=== PATIENT | female | born 1965 | race Caucasian/White ===

== ENCOUNTER 2020-10-28 09:13 | Emergency (ER) | payer OTHER, MEDICAID ==
[~2020-10-28] VITALS: Ht 162.6 cm; Wt 53.1 kg
[2020-10-28 10:04] LABS: Basophils # (auto) 0.1 10 ^3/uL (0-0.2); Basophils % (auto) 0.7 % (0.0-2.0); Eosinophils # (auto) 0 10 ^3/uL (0-0.8); Eosinophils % (auto) 0.1 % (0.0-7.0); Hematocrit 40.8 % (36.0-46.0); Hemoglobin 14.1 g/dL (12.2-16.2); Lymphocytes # (auto) 1.1 10 ^3/uL (0.4-5.4); Lymphocytes % (auto) 7.1 % (10.0-50.0); Mean Corpuscular Hgb Conc. 34.6 g/dL (32.0-36.0); Mean Corpuscular Volume 86.6 fL (80.0-100.0); Monocytes % (auto) 6.1 % (0.0-12.0); Neutrophils # (auto) 13.8 10 ^3/uL (1.6-8.6); Red Blood Cells 4.72 10^6/uL (4.0-5.20); Red Cell Distribution Width 13.4 % (11.8-14.3)
[2020-10-28 10:12] LABS: INR 1.38 (0.9-1.15)
[2020-10-28 10:22] LABS: Albumin 2.6 g/dL (3.4-5.0); Calcium 6.9 mg/dL (8.5-10.1); Potassium 4.1 mmol/L (3.5-5.1)
[2020-10-28 10:27] LABS: BUN/Creatinine Ratio 23.3; Total Protein 8.2 g/dL (6.4-8.2)
[2020-10-28] MEDS ORDERED: SODIUM CHLORIDE 0.9% 500 ML IVB ONE (11:15)
[2020-10-28] MEDS ORDERED: SODIUM CHLORIDE 0.9% 1,000 ML IV ONE (11:15)
[2020-10-28] MEDS ORDERED: CALCIUM CHL 100MG/ML 500 MG in D5W 5% 100 ML IV ONE (13:45)
[2020-10-28] MEDS ORDERED: cefTRIAXone 1GM/50ML D5W 50 ML IV ONE (14:00)
[2020-10-28 14:07] LABS: Urine Bacteria MANY /hpf (None Seen); Urine Blood 3+ /uL (Negative); Urine Mucus FEW (None Seen); Urine Specific Gravity 1.016 (1.001-1.035); Urine WBC 387 /hpf (0 - 5)
[2020-10-28 15:49] LABS: Magnesium 2.5 mg/dL (1.6-2.6)
[2020-10-28 18:58] VITALS: BP 97/60
== END 2020-10-28 19:06 | disposition home or self-care (01) ==
LOC: EDBD 09:13 → ER 09:13
DX: N93.9 Abnormal uterine and vaginal bleeding, unspecified (principal); G30.9 Alzheimer's disease, unspecified; F02.80 Dementia in other diseases classified elsewhere, unspecified severity, without behavioral disturbance, psychotic disturbance, mood disturbance, and anxiety; R94.5 Abnormal results of liver function studies; N39.0 Urinary tract infection, site not specified; E46 Unspecified protein-calorie malnutrition; K56.41 Fecal impaction; E83.51 Hypocalcemia; Z20.822 Contact with and (suspected) exposure to COVID-19
CPT/HCPCS: 36415; 71045; 74176; 76856; 80053; 81001; 83690; 83735; 84443; 85025; 85610; 85730; 87426; 93005; 96361; 96365; 96367; 99285; J0696; J7030; J7040; J7060